=== PATIENT | female | born 1990 ===

== ENCOUNTER 2024-03-17 06:08 | Inpatient (IN) | payer OTHER ==
[2024-03-17] MEDS: Citric Acid/Sodium Citrate Solution 30 ML Cup PO ONE ×2 (05:56→07:27)
[2024-03-17] MEDS: Metoclopramide 10 MG/2 ML SDV IVPUSH ONE ×2 (05:56→07:27)
[~2024-03-17 06:08] MED LIST: Lactated Ringers 1,000 ML IV SCH; Metoclopramide 10 MG/2 ML SDV IM ONE; Oxytocin/0.9 % Sodium Chloride 30 UNIT/500 ML BAG IV SCH; Sodium Chloride 0.9% 10 ML Syringe FLUSH PRN
[2024-03-17 06:26] LABS: BASOPHILS PERCENT AUTO 0.5 % (0.0-1.0); EOSINOPHILS ABSOLUTE AUTO 0.1 K/mm3 (0.0-0.4); EOSINOPHILS PERCENT AUTO 1.3 % (0.0-6.0); HEMATOCRIT 36.3 % (37.0-47.0); HEMOGLOBIN 11.9 gm/dl (12.0-16.0); IMMATURE GRAN ABSOLUTE AUTO 0.02 K/mm3 (0.00-0.05); IMMATURE GRAN PERCENT AUTO 0.3 % (0.0-0.4); LYMPHOCYTES ABSOLUTE AUTO 1.6 K/mm3 (1.0-4.8); LYMPHOCYTES PERCENT AUTO 21.7 % (24.0-44.0); MEAN CORPUSCULAR HEMOGLOBIN 27.9 pg (28.0-32.0); MEAN CORPUSCULAR HGB CONC 32.8 g/dl (32.0-36.0); MEAN PLATELET VOLUME 10.9 fl (9.4-12.3); MONOCYTES ABSOLUTE AUTO 0.6 K/mm3 (0.0-0.8); MONOCYTES PERCENT AUTO 8.1 % (0.0-8.0); NEUTROPHILS ABSOLUTE AUTO 5.1 K/mm3 (1.8-7.7); NEUTROPHILS PERCENT AUTO 68.1 % (41.0-71.0); PLATELET COUNT,PLT 284 K/mm3 (150-400); RED BLOOD CELL COUNT 4.27 M/mm3 (4.10-5.30); WHITE BLOOD CELL COUNT,WBC 7.43 K/mm3 (3.9-11.3)
[2024-03-17] MEDS: Lactated Ringers 1,000 ML IV SCH (06:46)
[2024-03-17] MEDS: ceFAZolin 2 GM in Sodium Chloride 0.9% 100 ML IV ONE (06:54)
[2024-03-17] MEDS ORDERED: Oxytocin/0.9 % Sodium Chloride 30 UNIT/500 ML BAG IV SCH ×2 (07:00→09:58)
[2024-03-17] MEDS ORDERED: fentaNYL 100 MCG/2 ML SDV ONE (07:07)
[2024-03-17] MEDS ORDERED: Ropivacaine 0.5% 5 MG/ML 30 ML SDV ONE (07:14)
[2024-03-17] MEDS ORDERED: Dexamethasone 4 MG/ML SDV ONE (07:14)
[2024-03-17] MEDS ORDERED: Ondansetron 4 MG/2 ML SDV ONE (07:14)
[2024-03-17] MEDS ORDERED: Morphine PF 10 MG/10 ML SDV ONE (07:15)
[2024-03-17] MEDS ORDERED: Famotidine 20 MG/2 ML SDV ONE (07:21)
[2024-03-17] MEDS: Sodium Chloride 0.9% 10 ML Syringe FLUSH SCH ×2 (07:26→10:24)
[2024-03-17] MEDS ORDERED: Lactated Ringers 1,000 ML IV ONE ×2 (08:00→08:40)
[2024-03-17] MEDS ORDERED: dexmedeTOMIDine HCl 200 MCG/2 ML SDV ONE (08:21)
[2024-03-17] MEDS ORDERED: Phenylephrine 1% 10 MG/ML SDV ONE (08:21)
[2024-03-17] MEDS ORDERED: ePHEDrine 50 MG/ML SDV ONE (08:21)
[2024-03-17] MEDS: Ketorolac 30 MG/ML SDV IVPUSH ONE (09:10)
[2024-03-17] MEDS ORDERED: Famotidine 20 MG Tab PO PRN (09:58)
[2024-03-17] MEDS ORDERED: diphenhydrAMINE 50 MG/ML SDV IVPUSH PRN (09:58)
[2024-03-17] MEDS ORDERED: oxyCODONE 5 MG Tab PO PRN (09:58)
[2024-03-17] MEDS ORDERED: Naloxone 0.4 MG/ML SDV IVPUSH PRN (09:58)
[2024-03-17] MEDS ORDERED: Magnesium Hydroxide 400 MG/5 ML Susp 30 ML Cup PO PRN (09:58)
[2024-03-17] MEDS ORDERED: ePHEDrine 50 MG/ML SDV IVPUSH PRN (09:58)
[2024-03-17] MEDS: Sodium Chloride 0.9% 100 ML ONE (10:24)
[2024-03-17] MEDS: Docusate Sodium 100 MG Cap PO SCH (10:30)
[2024-03-17] MEDS: Acetaminophen 325 MG Tab PO SCH (10:31)
[2024-03-17] MEDS: Prenatal Multivitamin with Calcium/Folic Acid/Iron Tab PO SCH (10:31)
[2024-03-17] MEDS: Simethicone 80 MG Tab.Chew PO SCH (10:31)
[2024-03-17] MEDS: Ketorolac 30 MG/ML SDV IVPUSH SCH (14:59)
[2024-03-17] MEDS ORDERED: ceFAZolin 2 GM Vial ONE (15:08)
[2024-03-17] MEDS: Dextrose 5%-Lactated Ringers 1,000 ML IV SCH (15:09)
[2024-03-17] MEDS: oxyCODONE 5 MG Tab PO PRN (20:09)
[2024-03-18] MEDS: Simethicone 80 MG Tab.Chew PO SCH (00:30)
[2024-03-18 06:23] LABS: HEMATOCRIT 30.6 % (37.0-47.0); MEAN CORPUSCULAR HEMOGLOBIN 28.4 pg (28.0-32.0); MEAN CORPUSCULAR HGB CONC 32.7 g/dl (32.0-36.0); MEAN CORPUSCULAR VOLUME 86.9 fl (83.0-99.0); MEAN PLATELET VOLUME 11.1 fl (9.4-12.3); PLATELET COUNT,PLT 233 K/mm3 (150-400); RED BLOOD CELL COUNT 3.52 M/mm3 (4.10-5.30); WHITE BLOOD CELL COUNT,WBC 9.54 K/mm3 (3.9-11.3)
[2024-03-18] MEDS: Ibuprofen 600 MG Tab PO SCH (09:42)
== END 2024-03-19 13:33 | disposition home or self-care (01) | DRG 788 ==
LOC: JD.OB 06:08
PROVIDERS: ADMIT Obstetrics & Gynecology; ATTEND Obstetrics & Gynecology
PROC: 10D00Z1 Extraction of Products of Conception, Low, Open Approach (ICD-10-PCS; principal; 2024-03-17 08:00)
DX: O34.211 Maternal care for low transverse scar from previous cesarean delivery (principal); O99.214 Obesity complicating childbirth; Z3A.39 39 weeks gestation of pregnancy; Z37.0 Single live birth
CPT/HCPCS: 01961; 36415; 59025; 64488; 85025; 85027; 86592; 86850; 86900; 86901; A9270-GY; J0690; J1100; J1885; J2274; J2371; J2405; J2765; J2795; J3010; J3490; J7120; J7121; J7999